=== PATIENT | female | born 1945 | race Caucasian/White ===

== ENCOUNTER → 2017-05-11 | Day surgery (SDC) | payer OTHER ==
[~2017-05-11] MED LIST: ACETAMINOPHEN 1000 MG/100 ML VIAL IV ONE; BENI20TA25 PO; LACTATED RINGER'S 1000 ML INJ 1,000 ML ONE; LIDOCAINE 1.5%/EPINEPHrine 1:200,000 PF SOLN 30 ML AMP ONE; MIDAZOLAM HCL 2 MG/2 ML VIAL ONE; NEOMYCIN/POLYMYXIN/BACITRACIN OINT 15 GM TUBE ONE; NEOMYCIN/POLYMYXIN/HYDROCORT OTIC SUSP 10 ML BTL ONE; ONDANSETRON HCL 4 MG/2 ML VIAL IV PUSH ONE; PROPOFOL 100 MG/10 ML INJ IV ONE; SODIUM CHLORIDE 0.9% INJ 10 ML ONE; ceFAZolin INJ 1,000 MG VIAL ONE
--- NOTE | 2017-05-11 14:05 | TH ---
cc: SARA ARMANDO M.D. DATE 05/11/2017 DATE OF 05/15/1946 PROCEDURE TO BE PERFORMED Mohs defect. 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 It was done at an outside facility, they left this open. When I see the patient today it has been four days since her surgery and the defect is certainly significantly and will describe in a second. PAST MEDICAL HISTORY Otherwise unremarkable. MEDICATIONS The only medication the patient is taking is clobetasol ointment for psoriasis. SOCIAL HISTORY She is an ex-smoker. REVIEW OF SYSTEMS She is a healthy individual. She has no past medical history problems, though the patient needs glasses for sight correction. The review of symptoms otherwise is noncontributory. PHYSICAL EXAM CONSTITUTIONAL: General appearance. The patient is a well-developed female in no acute distress. Body habitus is within normal limits. There appear to be no deformities. Appears to have attention to grooming. HEENT: Eyes Conjunctivae and lids are within normal anatomical limits. The pupils are reactive to light and accommodation, size, and symmetry. There is no evidence of exudate, hemorrhage, or vessel change. Ears, mouth, nose, and throat The external inspection of the ears fails to demonstrate any pathology, scars, lesions, or masses. Nasal mucosa, septum, and turbinates appear to be well hydrated as well as the lips and gums. No evidence of masses in the hypopharynx or submental area. RESPIRATORY: The patient shows no evidence of intercostal refractions. Otherwise, lungs are clear to auscultation without any abnormal sounds or rubs. CARDIOVASCULAR: The patient has a normal heart rate and rhythm. There is no evidence of noticed carotid bruits. Femoral pulses and pedal pulses in extremities are also within normal limits. GASTROINTESTINAL/ABDOMEN: Soft with no evidence of masses or tenderness. Unable to palpate the liver or spleen. No evidence of hernia. MUSCULOSKELETAL: Appears to be reasonable range of motion on the head, neck, spine, ribs, pelvis, right upper extremity, left upper extremity, right lower extremity, and left lower extremity. The muscle strength and tone appears to be equal and within accepted limits. SKIN: There is no rashes, lesions, or ulcers on the trunk, back, and extremities. NEUROLOGICAL: Examination is grossly normal. PSYCHIATRIC: The patient appears to have good orientation of time, place, and person. Does not appear to have any mood effects of depression, anxiety, or agitation. ASSESSMENT The patient does have a defect of about 3 x 4 cm that occupies the nasal tip, nasal dorsum and certainly the nasal ala. It measures about 3 x 4 cm. There is no evidence of a cazflbx-qml-ehundna defect however, it appears to be that the internal mucosa is definitely exposed. The patient does have, however, severe photo-damaged skin. RECOMMENDATIONS My recommendation for her is reconstruction. I have discussed with the patient the options and does include the nasolabial fold with a possible ear cartilage graft. The risks and possible complications were discussed. It does include not limited to the bleeding, infection, discolor, dysymetry, the need for further surgery, etc. We will schedule at [facility] this coming under anesthesia. MD ROSALVA iFnch/SHERON /3:32 PM /2:06 PM
--- NOTE | 2017-05-11 17:01 | TN ---
cc: ALESSANDRO KELLY M.D. DATE OF SURGERY: 05/11/2017 PREOPERATIVE DIAGNOSIS: Status post Mohs defect located the right nasal wall ala and tip. POSTOPERATIVE DIAGNOSIS Status post Mohs defect located the right nasal wall ala and tip. PROCEDURE: 1. Debridement of skin, subcutaneous tissue and muscle of a defect of 3 x 4 cm. 2. Fasciocutaneous flap based on zygomatic major/nasalis muscle. 3. The reconstruction of 3 x 4 cm with a nasolabial fold and leave flap for second primary defect 3 x 4 cm, second defect of 6 x 8. 4. Placement of cartilage graft in the nasal ala for support. SURGEON Alessandro Kelly MD ANESTHESIA LMA general Also utilized 30 cc of 1% lidocaine and epinephrine. ESTIMATED BLOOD LOSS: minimal COMPLICATIONS None. FINDINGS: The cartilaginous graft measures 3.5 x 0.50 cm. PROCEDURE: She was properly consented, marked, properly anesthetized the skin sterilized microsin sterile draping applied. Debridement of this most defect was carried out, the skin, subcutaneous tissue and some muscle. The defect is 3 x 4 centimeters. Harvesting of 3.5 x 0.50 cm graft was done from the left ear camila through a posterior approach. I proceeded to perform the closure of the ear camila with 3-0 Monocryl suture in running 3-0 locking Prolene a template was obtained of the defect. I proceeded to harvest zygomatic major muscle and brought this down into the nasolabial fold and distal to it. I preformed the elevation, and rotated into the defect, secured 5-0 Monocryl suture. The cartilaginous graft was secured utilizing 5-0 Monocryl sutures as well at the base of the rim. 5-0 fast absorbing gut was utilized for the skin around good viability of tissue was noted at the case. The patient was awakened, extubated in the operating room transferred back to postanesthesia care unit in stable condition. No complications were appreciated and the patient tolerated the procedure fairly well. MD ROSALVA Finch/dorothy /2:24 PM /4:54 PM [facility]
== END | disposition home or self-care (01) ==
LOC: ESDC 11:00
PROVIDERS: ATTEND Plastic Surgery
DX: M95.0 Acquired deformity of nose (principal); Z85.828 Personal history of other malignant neoplasm of skin
CPT/HCPCS: 00160; 00300; 15732; 21235; J0131; J0690; J2250; J2405; J3010; J7120